=== PATIENT | male | born 1995 | race Caucasian/White ===

== ENCOUNTER 2016-11-10 18:43 | Emergency (ER) | payer OTHER ==
[2016-11-10] MEDS ORDERED: Proparacaine 0.5% Ophth Soln 15 ML Bottle EYELF ONE (19:09)
[2016-11-10] MEDS ORDERED: Erythromycin Base 0.5% Ophth Oint 1 GM Tube EYELF ONE (19:18)
--- NOTE | 2016-11-10 19:25 | EDM.PDOC ---
ED HPI GENERAL MEDICAL PROBLEM - General Chief Complaint: Eye Problems Stated Complaint: EYE INJURY Time Seen by Provider: 11/10/16 19:00 Source of Information: Reports: Patient History Limitations: Reports: No Limitations - History of Present Illness INITIAL COMMENTS - FREE TEXT/NARRATIVE: This is a 21 y/o male. He was grinding some metal on Sunday and got a piece of metal in his left eye. He has put up with it for the week but the irritation got worse today and he comes to the ER for evaluation. He denies any other acute symptoms. left eye Pain Score (Numeric/FACES): 5 - Related Data Allergies Allergy/AdvReac Type Severity Reaction Status Date / Time No Known Allergies Allergy Verified 11/10/16 18:52 Home Meds: Home Meds . [No Known Home Meds] 11/10/16 [History] Past Medical History - Past Health History Medical/Surgical History: Denies Medical/Surgical History Social & Family History - Family History Family Medical History: Noncontributory - Tobacco Use Smoking Status *Q: Current Some Day Smoker Years of Tobacco use: 1 Packs/Tins Daily: 0.1 - Caffeine Use Caffeine Use: Reports: Soda - Recreational Drug Use Recreational Drug Use: No ED ROS GENERAL - Review of Systems Review Of Systems: See Below Constitutional: Reports: No Symptoms HEENT: Reports: Ear Pain, Eye Pain Respiratory: Reports: No Symptoms Cardiovascular: Reports: No Symptoms Endocrine: Reports: No Symptoms GI/Abdominal: Reports: No Symptoms : Reports: No Symptoms Musculoskeletal: Reports: No Symptoms Skin: Reports: No Symptoms Neurological: Reports: No Symptoms Psychiatric: Reports: No Symptoms Hematologic/Lymphatic: Reports: No Symptoms ED EXAM GENERAL W FULL EYE - Physical Exam Exam: See Below Exam Limited By: No Limitations General Appearance: Alert, WD/WN, Mild Distress Eye Exam: Left Eye: Other (FB noted at the 7 o'clock position at the periphery of the cornea.) Visual Acuity (R) 20/: 25 Visual Acuity (L) 20/: 20 With Correction: No Eyelids: Bilateral: Normal Appearance, Lid Everted for Exam Conjunctiva & Sclera: Bilateral: Normal Appearance Cornea Exam: Left: Foreign Body (As above) Extraocular Movements: Bilateral: Intact Pupillary Reaction: Bilateral: Brisk Anterior Chamber: Bilateral: Normal Appearance Comments: Once the eye was numb with proparacaine the FB was removed with a q-tip. There was a residual rust stain noted. Fluoresceine stain did not show any other FB and there was a small abrasion to the cornea after removal of the FB. Ears: Normal External Exam Nose: Normal Inspection Throat/Mouth: Normal Voice Head: Atraumatic Neck: Supple Respiratory/Chest: No Respiratory Distress Back Exam: Full Range of Motion Extremities: Normal Range of Motion Neurological: Alert, Oriented Psychiatric: Normal Affect, Normal Mood Skin Exam: Warm, Dry Course - Vital Signs Last Recorded V/S: Last Vital Signs Temp 97.8 F 11/10/16 18:48 Pulse 61 11/10/16 18:48 Resp 18 11/10/16 18:48 BP 124/79 11/10/16 18:48 Pulse Ox 98 11/10/16 18:48 - Orders/Labs/Meds Orders: Active Orders 24 hr Category Date Time Status Communication Order [RC] STAT Care 11/10/16 19:19 Ordered Meds: Medications Discontinued Medications Generic Name Dose Route Start Last Admin Trade Name Clyde PRN Reason Stop Dose Admin Erythromycin 1 gm 11/10/16 19:18 Erythromycin 0.5% Ophth Oint EYELF 11/10/16 19:19 ONETIME ONE Proparacaine HCl 4 ml 11/10/16 19:09 11/10/16 19:10 Proparacaine 0.5% Ophth Soln EYELF 11/10/16 19:10 4 drop ONETIME ONE Administration Departure - Departure Time of Disposition: 19:28 Disposition: Home, Self-Care 01 Condition: Good Clinical Impression: Corneal foreign body Qualifiers: Encounter type: initial encounter Laterality: left Qualified Code(s): T15.02XA - Foreign body in cornea, left eye, initial encounter - Discharge Information Forms: ED Department Discharge Additional Instructions: Wear the eye patch until the AM then use the artificial tears as often as you need for eye irritation. Try not to rub your eye from the irritation because it will scratch the cornea and keep the irritation going, Return to the ER if needed or continued symptoms. - My Orders Last 24 Hours: My Active Orders 11/10/16 19:19 Communication Order [RC] STAT - Assessment/Plan Last 24 Hours: My Active Orders 11/10/16 19:19 Communication Order [RC] STAT
[2016-11-11 00:17] VITALS: BP 124/79
== END 2016-11-10 19:52 | disposition home or self-care (01) ==
LOC: JD.ED 18:43
DX: T15.02XA Foreign body in cornea, left eye, initial encounter (principal); F17.210 Nicotine dependence, cigarettes, uncomplicated; X58.XXXA Exposure to other specified factors, initial encounter
CPT/HCPCS: 65210; 65220; 99283; A9270; 99282-25